=== PATIENT | female | born 2000 | race Caucasian/White ===

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

== ENCOUNTER 2022-01-14 10:40 | Day surgery (SDC) | payer MEDICAID, SELFPAY ==
[2022-01-13 11:44] VITALS: BMI 37.3
[2022-01-14] VITALS (14 sets, daily range): BP systolic 130–179; BP diastolic 68–97; PULSE 73–135; RESP 16–22; TEMP 36.1–36.9; O2SAT 97–100
[2022-01-14] MEDS: acetaminophen 1,000 MG/100 ML PIGGYBACK 400 MG IV (11:08)
[2022-01-14] MEDS: heparin 5,000 unit/mL INJ 1 mL 3000 UNIT SUBCUT (11:08)
[2022-01-14] MEDS: sodium chloride 0.9% 1,000 ML 30 ML IV (11:20)
--- NOTE | 2022-01-14 11:42 | W.PM.OPSUD ---
Surgery/Procedure H&P Update DATE OF PROCEDURE: January 14, 2022 DATE H&P PERFORMED: 12/30/21 H&P UPDATE INFORMATION: I have reviewed H&P completed within last 30 days, I have examined patient prior to procedure and Changes to prior documentation as noted here (Patient lost 15 pounds on liquid protein diet.) PREOP DIAGNOSIS: Symptomatic cholelithiasis PRIMARY INDICATION FOR PROCEDURE: The same PLANNED PROCEDURE: Operation Date: 01/14/22 12:35 Proposed Procedures p Laparoscopic Cholecystectomy 28713,R10.11(Not Applicable) - Vazquez Connelly MD
--- NOTE | 2022-01-14 11:57 | ANES.PREANE2 ---
Pre-Anesthetic Assessment Height/Weight: Height 1.78 m Weight 117.934 kg Temp Pulse Resp BP Pulse Ox O2 Del Method 97.0 F L 101 H 16 157/97 99 01/14/22 10:53 01/14/22 10:53 01/14/22 10:53 01/14/22 10:53 01/14/22 10:53 01/14/22 10:58 Preop Diagnosis: Symptomatic cholelithiasis Operation Date: 01/14/22 12:35 Proposed Procedures p Laparoscopic Cholecystectomy 14005,R10.11(Not Applicable) - Vazquez Connelly MD Familial anesthetic complications: None Was Beta Janette taken within 24 hours: N/A Was Clonidine taken within 24 hours: N/A Last intake: Intake Last Liquid Date 01/13/22 Last Liquid Time 22:00 Last Solid Date 01/03/22 Last Solid Time 12:00 Social No alcohol and No tobacco Exam alert, oriented x 3, clear to auscultation bilaterally and regular rate & rhythm Airway Mallampati: Class I Dentition: full Hepatic fatty liver GI Gastroesophageal Reflux Disease and Hiatal Hernia Metabolic Morbid Obesity Anesthetic Plan ASA status: 2 Anesthesia: General Risk of > 500 ml blood loss (7ml/kg in children): No Medications/Allergies Home Medications Medication Instructions Recorded Confirmed Last Taken Type cholecalciferol (vitamin D3) 1,250 50,000 unit PO .weekly 06/20/21 01/14/22 01/13/22 22:00 History mcg (50,000 unit) capsule norgestimate-ethinyl estradiol 1 tab PO ONCE 28 days #28 tabs 10/24/21 01/14/22 01/13/22 22:00 Rx 0.18 mg/0.215mg/0.25mg-35 mcg(28)tablet (Tri-Sprintec (28)) topiramate 25 mg tablet (Topamax) 25 mg PO BID #60 tabs 10/24/21 01/14/22 01/13/22 22:00 Rx aripiprazole 10 mg tablet 10 mg PO DAILY 30 days #30 tabs 11/12/21 01/14/22 01/13/22 09:00 Rx trazodone 50 mg tablet 50 mg PO .qhs PRN Sleep 11/19/21 01/13/22 12/11/21 History ferrous sulfate 325 mg (65 mg 325 mg PO DAILY 12/11/21 01/14/22 01/13/22 22:00 History iron) tablet (iron) mecobalamin (vitamin B12) 1,000 1,000 mcg PO DAILY 12/11/21 01/14/22 01/13/22 22:00 History mcg chewable tablet (B12 Active) pantoprazole 40 mg tablet,delayed 40 mg PO DAILY 30 days #30 tabs 12/13/21 01/14/22 01/13/22 22:00 Rx release (Protonix) Allergies Allergy/AdvReac Type Severity Reaction Status Date / Time No Known Allergies Allergy Verified 12/30/21 12:46 [facility] Anesthesia Medical History Anxiety and depression Chronic migraine Mood swings Personality disorder, unspecified Psychiatric care Vitamin D deficiency Surgical History History of tonsillectomy age 19 Family History Grandmother Cancer Breast cancer Other CAD (coronary artery disease) Chronic kidney disease (CKD) Dementia Diabetes Hypertension Psychiatric illness Stroke Denies family history of Clotting disorder Hyperlipidemia Suicide Anesthesia complication Bleeding disorder Lung disease Social History Smoking and tobacco status: current every day smoker e-cigarettes E-Cigarette Details: vaporizer device Second hand smoke exposure: No Smoking risk assessment/counseling performed?: No Alcohol intake: never Desire information about alcohol rehabilitation?: No Counseling given: No Desire information about substance/drug rehabilitation?: No Counseling given: No Adopted: No Data Anesthesia Cardiac Studies: No Data to Display
[2022-01-14 12:18] LABS: OR HCG Qualitative Urine Negative (Negative)
[2022-01-14] MEDS: lidocaine 2% INJ 20 mL INJECTION (12:58)
[2022-01-14] MEDS: ampicillin-sulbactam 3 GM in sodium chloride 0.9% (plus) 50 ML IV (12:59)
--- NOTE | 2022-01-14 14:44 | PM.OP ---
Operative Report Date of procedure: January 14, 2022 Pre-op diagnosis: Preop Diagnosis Symptomatic cholelithiasis Post-op findings: Fatty liver and chronic calculus cholecystitis Procedure done: Laparoscopic cholecystectomy Implants: Surgicel in the gallbladder fossa Specimens removed/disposition: Gallbladder and contents Intra-abdominal adhesive band Surgeon: Vazquez Connelly MD Senior Microstrategy Developer: Surgical enrique Azul and Justina Circulating nurse Rosangela Trent Anesthesia: General (RFP WRITER Ayanna and RFP WRITER student Andres) Estimated blood loss (mL): 20 IV fluids (mL): 700 Procedure: Patient was identified in the holding area and taken back to the operative suite, placed in supine position intubated by anesthesia . Time-out was done verifying the patient's name/date of /planned procedure and destination after the procedure, all were in agreement. SCDs confirmed to be functioning, preoperative antibiotics administered per protocol, and beta masood protocol was confirmed. Patient was appropriately secured to the table, footboard was applied to the OR table, before prep and drape anesthesia was asked to tilt the table back and forth to make sure that the patient is appropriately secured and she was. Prep and drape of the abdomen was done under the usual sterile technique, followed by that supraumbilical skin incision,skin incision was done by a 15 blade knife, and stay sutures were applied to the fascia and Jessica trocar technique was used to enter the abdominal without injuring any abdominal viscera, started by low flow gas insufflation followed by a high flow, started with a 10 mm laparoscope and under direct vision there was no evidence of any injuries, the scope then switched to a 30? ,10 millimeter scope and under direct visualization 5 millimeter trocar was inserted in the epigastric region followed by two 5 mm trocars were inserted in the right upper quadrant that was done after injection of local lidocaine 2% at all incision sites. Gallbladder showed chronic calculus cholecystitis and Fatty Liver Patient was then positioned in the head up and tilted to the left. Ratcheted forceps were introduced into the lateral most 5mm port and was applied unto the fundus of the gallbladder cephalad and using Bullet forceps the infundibulum of the gallbladder was retracted laterally. Using [place] forceps then L-hook cautery to dissect the peritoneum overlying the Calot's triangle which was then opened medially and laterally until the cystic duct and the cystic artery were skeletonized. Dissection was carried along the body of the gallbladder and after ensuring critical view of safety was identfied. Cystic duct and cystic artery where seen connected to the gallbladder. Clips were applied on the cystic duct towards the common bile duct 1 towards the gallbladder then divided is in sharp scissors, 2 clips were then applied onto the cystic artery and 1 towards the gallbladder and divided by sharp scissors. Additional clip was applied on the traversing vessel. Dissection was then carried along of the gallbladder from the gallbladder fossa using cautery as well as sharp dissection with heat energy. The gallbladder then was dissected out from the gallbladder fossa totally , cholecystectomy was then achieved and was placed in an Endo Catch bag and then retrieved from the Jessica trocar site under direct visualization using a 5 mm 30? scope through the epigastric trocar, specimen was then passed to the circulating nurse to go for permanent pathology,irrigation and hemostasis was done to the gallbladder fossa after hemostasis was secured and the pieces of Surgicel placed at the gallbladder fossa., final survey laparoscopy was done that showed no injuries. Suction irrigation was obtained. Intra-abdominal adhesions was noticed towards the liver could represent an obliterated vessel that was taken down and divided using clips and sent out for pathology, traversing from the liver fissure to the umbilicus. The supraumbilical fascial defect was then closed using interrupted number one PDS sutures using a fascial closure device ;Raheem Hollins under direct visualization following that Gas was allowed to deflate,Trocars were then taken out under direct vision there was no evidence of bleeding. Specimens were passed to the circulating nurse for permanent pathology. No drains were placed and the supraumbilical incision as well as all trocar sites were closed by 3/0 Vicryl followed by 4-0 Monocryl to approximate the skin edges of the incisions , dressing was applied in the form of surical glue and the patient patient got extubated and was taken to recovery area in a stable condition. Count of sponges,needles and instruments were completed at the end of the procedure I was present for the whole entire procedure.
--- NOTE | 2022-01-14 15:11 | SUR.PHASEI ---
1458 PT TO PACU 5 PT AWAKES TO VOICE, VERBALLY DENIES PAIN AND NAUSEA, ABDOMEN SOFT WITH 4 SITES WITH SKIN GLUE, MONITOR ST WITH NO ECTOPY NOTED IV TO LT WRIST #20 WITH NS 200ML UP AT KVO RATE PER GRAVIEY, ID BRACELET TO RT WRIST, PT ID'D WITH 2 IDENTIFIERS, BILAT SCDS ON . PT VERBALZIING APPROPRIATLY.
[2022-01-14] MEDS: ondansetron 2 mg/ML SDV 2 mL 4 MG IVP ×2 (15:38→16:07)
[2022-01-14] MEDS: promethazine 25 mg/mL SDV 1 mL 12.5 MG IM (16:21)
[2022-01-14] MEDS: scopolamine 1.5 Patch 1 PATCH TRANSDERMA (16:21)
--- NOTE | 2022-01-14 16:26 | PC.NURSE ---
Post-operative Nausea/Vomiting Patient awake, getting dressed and ready to leave. Patient began feeling nauseous, did vomit x2. Patient A&O x4. Attempt to call Dr. Ventura, no answer. Dr. Connelly notified, came to assess patient, and ordered Scop patch, Zofran 4mg IV, Phenergan 12.5mg IM, and ordered Zofran prescription for home use. Vidal called in to [facility], received. Medications given. VSS, no change. Patient educated on medications, side effects, and when to remove patch. Discharge instructions given, patient and mother verbalized understanding. Patient now attempting small amount of ice chips. She denies pain currently. Dr. Ventura updated.
== END 2022-01-14 17:05 | disposition home or self-care (01) ==
PROVIDERS: Anesthesiology; PCP Nurse Practitioner Family; Visit Provider Surgery
PROC: 0FT44ZZ Resection of Gallbladder, Percutaneous Endoscopic Approach (ICD-10-PCS; CPT 47562; principal; 2022-01-14 12:25)
DX: K80.10 Calculus of gallbladder with chronic cholecystitis without obstruction (principal); K21.9 Gastro-esophageal reflux disease without esophagitis; E66.01 Morbid (severe) obesity due to excess calories; K44.9 Diaphragmatic hernia without obstruction or gangrene
CPT/HCPCS: 47562; 84703; 88304; 88307; J0295; J1100; J1170; J1200; J1644; J2250; J2405; J2550; J2704; J2710; J3010; J3490; J7030

== ENCOUNTER 2022-01-14 19:11 | Emergency (ER) | payer MEDICAID, SELFPAY ==
[2022-01-14 19:15] VITALS: BP 140/82; PULSE 90; RESP 16; TEMP 36.4; O2SAT 100; BMI 37.3
--- NOTE | 2022-01-14 20:13 | W.ED.GENADLT ---
HPI - General Adult General: Chief complaint: Abdominal Pain Stated complaint: Surgery Today Pain Extreme Time Seen by Provider: 01/14/22 20:10 History of Present Illness: Patient is a 21-year-old female who underwent cholecystectomy earlier today with Dr. Connelly presenting to the emergency room with concerns of right upper abdominal pain. Patient tells me that she has been unable to fill her prescription for pain medicine. Patient denies any nausea/vomiting, fever/chills. Patient reports pain in the right upper quadrant. Patient denies any incision site leakage drainage or pain. Patient reports sore throat from the procedure earlier today. Patient denies any melena or hematochezia. Patient has not been able to stool just yet. Patient has been able to tolerate p.o. prior abdominal surgery. Patient denies any urinary complaints. No new vaginal discharge. Onset:earlier today Duration:ongoing Location:home Severity:moderate Associated symptoms: Deny chest pain, dyspnea, nausea, rash, palpitations or vomiting Review of Systems Const: Denies: fever(s) or chills Eyes: Denies: change in vision ENMT: Reports: other (+sore throat); Denies: mouth pain Card: Denies: chest pain or palpitations Resp: Denies: dyspnea or non-productive cough GI: Reports: abdominal pain; Denies: nausea, vomiting or diarrhea : Denies: dysuria Musc: Denies: extremity pain Skin/Breast: Denies: rash or new lesions Neuro: Denies: weakness in extremities Psych: Reports: other (Normal mood) Yoshi/Lymph: Denies: easy bruising PFSH ED PFSH: Medical History Anxiety and depression Chronic migraine Mood swings Personality disorder, unspecified Psychiatric care Vitamin D deficiency Surgical History History of tonsillectomy age 19 Family History Grandmother Cancer Breast cancer Other CAD (coronary artery disease) Chronic kidney disease (CKD) Dementia Diabetes Hypertension Psychiatric illness Stroke Denies family history of Clotting disorder Hyperlipidemia Suicide Anesthesia complication Bleeding disorder Lung disease Social History Smoking and tobacco status: current every day smoker e-cigarettes E-Cigarette Details: vaporizer device Second hand smoke exposure: No Smoking risk assessment/counseling performed?: No Alcohol intake: never Desire information about alcohol rehabilitation?: No Counseling given: No Desire information about substance/drug rehabilitation?: No Counseling given: No Adopted: No Female Reproductive History: Date of last menstrual period: 01/05/22 Physical Exam Const: COMMON NORMALS: alert HENMT: COMMON NORMALS: atraumatic HEAD & SCALP: atraumatic MOUTH: moist mucous membranes not abnormal Eye: COMMON NORMALS: EOMs intact bilaterally and conjunctivae normal CONJUNCTIVA: Yes conjunctivae normal Neck/C-Spine: COMMON NORMALS: full ROM and supple Resp: COMMON NORMALS: normal respiratory effort and clear to auscultation bilaterally AUSCULTATION: clear to auscultation bilaterally Cardio: COMMON NORMALS: regular rate RATE: regular rate GI: COMMON NORMALS: Soft to palpation and non-tender PALPATION: Yes Soft to palpation OTHER: +mild RUQ TTP. NO guarding rebound, guarding, rigidity. No CVA tenderness to percussion. Neg Hughes/Neg McBurney's point tenderness, no suprabupic tenderness to palpation. Laparoscopic incision site appears to be dry/clean/intact Extremity: COMMON NORMALS: full ROM Neuro: SENSORIUM/ORIENTATION: Yes alert MOTOR EXAM: No Abnormal motor strength present and Other motor observations present (no focal motor deficits) Psych: COMMON NORMALS: speech normal SPEECH: Yes normal speech MOOD & AFFECT: Yes euthymic mood Course Vital Signs: Vital signs: Vital Signs Temperature 97.6 F 01/14/22 19:15 Pulse Rate 77 01/14/22 22:26 Respiratory Rate 16 01/14/22 22:26 Blood Pressure 141/79 01/14/22 22:26 Pulse Oximetry 100 01/14/22 22:26 Oxygen Delivery Me thod 01/14/22 19:15 MDM - General Adult Medical Decision Making Patient is a 21-year-old female who underwent cholecystectomy earlier today with Dr. Connelly presenting to the emergency room with concerns of right upper abdominal pain. White count of 19.6 likely postoperative. Rest of lab within normal limit. CT showed air and postoperative changes. The air is likely postsurgery. Patient reports feeling symptomatically improved after pain control. She has a script for opiates for tomorrow. I will give send patient home 1 dose of opiate to go home with. No suspicion for other acute intra-abdominal pathology including SBO, biliary pathology, appendicitis, diverticulitis, or other emergent condition requiring surgery. Rx tylenol PRN abd pain, maalox/pepcid PRN dyspepsia, and zofran PRN nausea/vomiting Disposition: Discharge. Patient counseled regarding diagnostic impression, treatment plan. Patient given ED strict return precautions to return for continuation, worsening, or development of new symptoms. Instructed to f/u w/ PCP regarding symptoms today. Patient verbalized understanding. Lab Data : 01/14/22 21:10 01/14/22 21:10 Radiology Impressions Abdomen/Pelvis CT 01/14/22 21:17 IMPRESSION: 1. Postoperative changes associated with recent cholecystectomy. Small amount of loculated fluid and gas in the surgical bed with scattered free intraperitoneal air, likely postsurgical. Follow-up to resolution is recommended. If there is clinical concern for bile leak, HIDA scan would provide a more sensitive evaluation. 2. Additional findings, as above. Laboratory Results WBC 19.6 10^3/uL (4.5-13.0) H 01/14/22 21:10 RBC 4.70 10^6/uL (4.1-5.3) 01/14/22 21:10 Hgb 13.8 g/dL (11.5-15.3) 01/14/22 21:10 Hct 42.6 % (37.0-47.0) 01/14/22 21:10 MCV 90.6 fl (81-99) 01/14/22 21:10 MCH 29.4 pg (28.0-34.0) 01/14/22 21:10 MCHC 32.4 g/dL (30.0-36.0) 01/14/22 21:10 RDW 13.0 % (12.1-15.1) 01/14/22 21:10 Plt Count 463 10^3/cmm (130-400) H 01/14/22 21:10 MPV 10.0 fL (7.4-10.4) 01/14/22 21:10 Neut % (Auto) 94.8 % 01/14/22 21:10 Lymph % (Auto) 2.8 % 01/14/22 21:10 Mathews % (Auto) 1.5 % 01/14/22 21:10 Eos % (Auto) 0.0 % 01/14/22 21:10 Baso % (Auto) 0.2 % 01/14/22 21:10 Neut # (Auto) 18.63 10^3/uL (1.8-8.0) H 01/14/22 21:10 Lymph # (Auto) 0.6 10^3/uL (1.5-6.5) L 01/14/22 21:10 Mathews # (Auto) 0.3 10^3/uL (0.2-0.9) 01/14/22 21:10 Eos # (Auto) 0.0 10^3/uL (0.0-0.8) 01/14/22 21:10 Baso # (Auto) 0.0 10^3/uL (0.0-0.1) 01/14/22 21:10 Nucleated RBC % (auto) 0 % 01/14/22 21:10 Nucleated RBCs # 0.0 /100WBC 01/14/22 21:10 Sodium 136 mmol/L (136-145) 01/14/22 21:10 Potassium 4.6 mmol/L (3.5-5.1) 01/14/22 21:10 Chloride 99 mmol/L (98-107) 01/14/22 21:10 Carbon Dioxide 19 mmol/L (22-29) L 01/14/22 21:10 Anion Gap 22.6 (5-19) H 01/14/22 21:10 BUN 6 mg/dL (6-20) 01/14/22 21:10 Creatinine 0.6 mg/dL (0.5-0.9) 01/14/22 21:10 GFR Calculation 128.8 mL/min (90-130) 01/14/22 21:10 Glucose 122 mg/dL (65-115) H 01/14/22 21:10 Calculated Osmolality 281 mOsm/kg (285-295) L 01/14/22 21:10 Calcium 9.9 mg/dL (8.5-10.5) 01/14/22 21:10 Total Bilirubin 0.3 mg/dL (0.15-1.2) 01/14/22 21:10 AST 83 U/L (0-32) H 01/14/22 21:10 ALT 102 U/L (0-33) H 01/14/22 21:10 Alkaline Phosphatase 73 U/L (35-105) 01/14/22 21:10 Total Protein 7.8 g/dL (6.6-8.7) 01/14/22 21:10 Albumin 4.6 g/dL (3.5-5.2) 01/14/22 21:10 Globulin 3.2 g/dL (1.3-4.6) 01/14/22 21:10 Lipase 41 U/L (13-60) 01/14/22 21:10 Imaging Data Other Imaging: Radiologist's impression: [employer] [place] [address] CT Scan Report Signed Patient: Emilia Luther Unit #: [id number] : 2000 Age/Sex: 21 / F ADM Date: 01/14/22 Loc: ER Room/Bed: Attending Dr: Ordering Provider/Ordering MD: Herlinda Johnson MD Date of Service: 01/14/22 Procedure(s): CT abdomen pelvis w con* [id number] Accession Number(s): [id number] Report Number: [id number] PROCEDURE INFORMATION: Exam: CT Abdomen And Pelvis With Contrast Exam date and time: 01/14/2022 9:25 PM Age: 21 years old Clinical indication: Abdominal pain; Localized; Right upper quadrant (ruq); Prior surgery; Surgery date: Post-operative (0-2 days); Surgery type: Gb. Patient HX: C/O ruq pain post lap gb surgery earlier today. ; Additional info: Post op pain TECHNIQUE: Imaging protocol: Computed tomography of the abdomen and pelvis with contrast. Axial, coronal and sagittal reformatted images were created and reviewed. Radiation optimization: All CT scans at this facility use at least one of these dose optimization techniques: automated exposure control; mA and/or kV adjustment per patient size (includes targeted exams where dose is matched to clinical indication); or iterative reconstruction. Contrast material: OMNI 350; Contrast volume: 80 ml; Contrast route: INTRAVENOUS (IV);? COMPARISON: CT abdomen pelvis w con* [id number] 12/29/2015 3:00 AM RADIATION DOSE METRICS: Total DLP (mGy-cm): 1162.97 FINDINGS: Liver: Unremarkable. Gallbladder and bile ducts: Postoperative changes associated with recent cholecystectomy. Small amount of loculated fluid and gas in the surgical bed, likely postoperative. Pancreas: Unremarkable. Spleen: Unremarkable. Adrenal glands: Normal. No mass. Kidneys and ureters: No mass. No radiodense calculi. No hydronephrosis. Stomach and bowel: No bowel wall thickening. No obstruction. No pneumatosis. Appendix: Normal. Intraperitoneal space: Small amount of free intraperitoneal air, predominantly in the right upper quadrant, likely postsurgical. Vasculature: Unremarkable. No aneurysm. Lymph nodes: Small mesenteric lymph nodes, nonspecific in appearance. No pathologically enlarged lymph nodes. Urinary bladder: Unremarkable as visualized. Reproductive: Unremarkable. Bones/joints: No acute osseous abnormality. Soft tissues: Unremarkable. CT/CT abdomen pelvis w con* [id number] IMPRESSION: 1. Postoperative changes associated with recent cholecystectomy. Small amount of loculated fluid and gas in the surgical bed with scattered free intraperitoneal air, likely postsurgical. Follow-up to resolution is recommended. If there is clinical concern for bile leak, HIDA scan would provide a more sensitive evaluation. 2. Additional findings, as above. ? Dictated By: Alberto Collier MD Signed By: Alberto Collier MD Signed Date/Time: 01/14/222148 DD/ 24 Discharge Plan Discharge Patient Disposition: Home Clinical Impression: Abdominal pain Condition: Stable Prescriptions: New Pepcid 20 mg tablet 20 mg PO BID PRN (Reason: abdominal pain) 10 Days Qty: 20 0RF Maalox Advanced 1,000-60 mg tablet,chewable 1 tab PO TID PRN (Reason: abdominal pain) 7 Days Qty: 21 0RF No Action cholecalciferol (vitamin D3) 1,250 mcg (50,000 unit) capsule 50,000 unit PO .weekly Label Comments: Pt not taking any more aripiprazole 10 mg tablet 10 mg PO DAILY 30 Days Qty: 30 3RF topiramate [Topamax] 25 mg tablet 25 mg PO BID Qty: 60 5RF norgestimate-ethinyl estradiol [Tri-Sprintec (28)] 0.18/0.215/0.25 mg-35 mcg (28) tablet 1 tab PO ONCE 28 Days Qty: 28 11RF trazodone 50 mg tablet 50 mg PO .qhs PRN (Reason: Sleep) ferrous sulfate [iron] 325 mg (65 mg iron) Tablet 325 mg PO DAILY B12 Active 1,000 mcg Tablet,Chewable 1,000 mcg PO DAILY pantoprazole [Protonix] 40 mg tablet,delayed release (DR/EC) 40 mg PO DAILY 30 Days Qty: 30 3RF hydrocodone-acetaminophen 5-325 mg tablet 1 tab PO Q6H PRN (Reason: pain) Qty: 28 0RF Discharge Orders: Discharge ED (Routine); Ordered 01/14/22 Ordered By: Herlinda Johnson Referrals: Damaris Aguilera FNP-C [Primary Care Provider] - Discharge Diet: Advance as tolerated Discharge Activity: Increase activity as tolerated Patient Instructions: Abdominal Pain (ED) Activity Restrictions/Additional Instructions: Please come back if you have any worsening abdominal pain, fever or chills, nausea or vomiting, diarrhea, blood in the stool, inability hold down liquid or solids, or any new concerning complaints. Our medical case manager will have you follow-up with Dr. Connelly in the next few days. You would be expected to have a phone call with our medical case manager who will put you on the schedule. You can expect a call from us in the next 2-3 days. If you don't hear from us, call us back in the emergency room at [phone]. 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
[2022-01-14 21:05] VITALS: RESP 18
[2022-01-14] MEDS: HYDROmorphone 1 mg/mL INJ 1 mL 0.5 MG IVP (21:05)
[2022-01-14] MEDS: sodium chloride 0.9% 1,000 ML 999 ML IV (21:05)
[2022-01-14 21:15] LABS: Basophils % 0.2 %; Hematocrit 42.6 % (37.0-47.0); Hemoglobin 13.8 g/dL (11.5-15.3); Lymphocytes # 0.6 10^3/uL (1.5-6.5); Lymphocytes % 2.8 %; Mean Corpuscular HGB Conc 32.4 g/dL (30.0-36.0); Mean Corpuscular Hemoglobin 29.4 pg (28.0-34.0); Mean Corpuscular Volume 90.6 fl (81-99); Monocytes # 0.3 10^3/uL (0.2-0.9); Monocytes % 1.5 %; Neutrophils # 18.63 10^3/uL (1.8-8.0); Neutrophils % 94.8 %; Nucleated Red Blood Cells % 0 %; Platelet Count 463 10^3/cmm (130-400); White Blood Count 19.6 10^3/uL (4.5-13.0)
--- NOTE | 2022-01-14 21:17 | CTR_ITS ---
PROCEDURE INFORMATION: Exam: CT Abdomen And Pelvis With Contrast Exam date and time: 01/14/2022 9:25 PM Age: 21 years old Clinical indication: Abdominal pain; Localized; Right upper quadrant (ruq); Prior surgery; Surgery date: Post-operative (0-2 days); Surgery type: Gb. Patient HX: C/O ruq pain post lap gb surgery earlier today. ; Additional info: Post op pain TECHNIQUE: Imaging protocol: Computed tomography of the abdomen and pelvis with contrast. Axial, coronal and sagittal reformatted images were created and reviewed. Radiation optimization: All CT scans at this facility use at least one of these dose optimization techniques: automated exposure control; mA and/or kV adjustment per patient size (includes targeted exams where dose is matched to clinical indication); or iterative reconstruction. Contrast material: OMNI 350; Contrast volume: 80 ml; Contrast route: INTRAVENOUS (IV); COMPARISON: CT abdomen pelvis w con* [id number] 12/29/2015 3:00 AM RADIATION DOSE METRICS: Total DLP (mGy-cm): 1162.97 FINDINGS: Liver: Unremarkable. Gallbladder and bile ducts: Postoperative changes associated with recent cholecystectomy. Small amount of loculated fluid and gas in the surgical bed, likely postoperative. Pancreas: Unremarkable. Spleen: Unremarkable. Adrenal glands: Normal. No mass. Kidneys and ureters: No mass. No radiodense calculi. No hydronephrosis. Stomach and bowel: No bowel wall thickening. No obstruction. No pneumatosis. Appendix: Normal. Intraperitoneal space: Small amount of free intraperitoneal air, predominantly in the right upper quadrant, likely postsurgical. Vasculature: Unremarkable. No aneurysm. Lymph nodes: Small mesenteric lymph nodes, nonspecific in appearance. No pathologically enlarged lymph nodes. Urinary bladder: Unremarkable as visualized. Reproductive: Unremarkable. Bones/joints: No acute osseous abnormality. Soft tissues: Unremarkable. CT/CT abdomen pelvis w con* [id number] IMPRESSION: 1. Postoperative changes associated with recent cholecystectomy. Small amount of loculated fluid and gas in the surgical bed with scattered free intraperitoneal air, likely postsurgical. Follow-up to resolution is recommended. If there is clinical concern for bile leak, HIDA scan would provide a more sensitive evaluation. 2. Additional findings, as above.
[2022-01-14 21:18] VITALS: BP 151/86; PULSE 66; RESP 16; O2SAT 99
[2022-01-14] MEDS: iohexol 350 mg/mL 100 mL Btl IV (21:26)
[2022-01-14 21:37] LABS: Alanine Aminotransferase 102 U/L (0-33); Albumin Level 4.6 g/dL (3.5-5.2); Alkaline Phosphatase 73 U/L (35-105); Anion Gap 22.6 (5-19); Aspartate Amino Transferase 83 U/L (0-32); Blood Urea Nitrogen 6 mg/dL (6-20); Calcium 9.9 mg/dL (8.5-10.5); Carbon Dioxide 19 mmol/L (22-29); Chloride 99 mmol/L (98-107); Globulin 3.2 g/dL (1.3-4.6); Glomerular Filtration Rate 128.8 mL/min (90-130); Glucose 122 mg/dL (65-115); Lipase 41 U/L (13-60); Osmolality Calculated 281 mOsm/kg (285-295); Potassium 4.6 mmol/L (3.5-5.1); Sodium 136 mmol/L (136-145); Total Bilirubin 0.3 mg/dL (0.15-1.2); Total Protein 7.8 g/dL (6.6-8.7)
[2022-01-14 22:26] VITALS: BP 141/79; PULSE 77; RESP 16; O2SAT 100
== END 2022-01-14 22:23 | disposition home or self-care (01) ==
PROVIDERS: Emergency Provider Emergency Medicine; PCP Nurse Practitioner Family
DX: R10.9 Unspecified abdominal pain (principal); F17.290 Nicotine dependence, other tobacco product, uncomplicated
CPT/HCPCS: 74177; 80053; 83690; 85025; 96361; 96374; 99285; J1170; J7030; Q9967

== ENCOUNTER 2022-02-03 13:49 | Oncology outpatient (recurring) (ONCR) | payer MEDICAID, SELFPAY ==
[2022-02-03 14:36] LABS: Basophils # 0.1 10^3/uL (0.0-0.1); Basophils % 1.2 %; Eosinophils # 0.1 10^3/uL (0.0-0.8); Eosinophils % 0.5 %; Hematocrit 39.6 % (37.0-47.0); Hemoglobin 12.6 g/dL (11.5-15.3); Lymphocytes # 2.2 10^3/uL (1.5-6.5); Lymphocytes % 20.3 %; Mean Corpuscular HGB Conc 31.8 g/dL (30.0-36.0); Mean Corpuscular Hemoglobin 29.2 pg (28.0-34.0); Mean Corpuscular Volume 91.7 fl (81-99); Mean Platelet Volume 9.7 fL (7.4-10.4); Monocytes # 0.7 10^3/uL (0.2-0.9); Monocytes % 6.2 %; Neutrophils # 7.84 10^3/uL (1.8-8.0); Neutrophils % 71.3 %; Nucleated Red Blood Cells % 0 %; Platelet Count 403 10^3/cmm (130-400); Red Blood Count 4.32 10^6/uL (4.1-5.3); Red Cell Distribution Width 13.1 % (12.1-15.1)
[2022-02-03 15:26] LABS: Homocysteine 7.43; Iron 35 ug/dL (37-145); Percent Saturation 10.8 % (20-50); Total Iron Binding Capacity 323 mcg/dl; Unsaturated Iron Binding 288 ug/dL (112-347); Vitamin B12 794 pg/mL (232-1245)
[2022-02-06 09:43] LABS: Methylmalonic Acid <50 nmol/L (87-318)
== END 2022-02-17 23:59 | disposition home or self-care (01) ==
PROVIDERS: PCP Nurse Practitioner Family; Visit Provider Internal Medicine Medical Oncology
DX: D75.839 Thrombocytosis, unspecified (principal)
CPT/HCPCS: 36415; 82607; 83090; 83540; 83550; 83921; 85025

== ENCOUNTER → 2022-03-24 09:38 | Outpatient (BNVA) | payer MEDICAID, SELFPAY | PROVIDERS: PCP Nurse Practitioner Family; Visit Provider Nurse Practitioner Family | DX: R35.0 Frequency of micturition (principal); R73.9 Hyperglycemia, unspecified; Z72.51 High risk heterosexual behavior | CPT/HCPCS: 80053; 81000; 83036; 85025; 87077; 87086; 87184; 87491; 87591; 87661 ==

== ENCOUNTER 2022-05-16 08:34 | Outpatient (CLI) | payer MEDICAID, SELFPAY ==
--- NOTE | 2022-05-16 08:30 | FL_ITS ---
WS: [id number] Exam: [place] small bowel [place] gastro [id number] Date/Time of Exam: 05/16/2022 8:41 AM Reason For Exam: Fluoroscopy time: 0min [id number] minutes # of spot films: 2 Preliminary survey of the abdomen is unremarkable. Barium courses through the small bowel without obstruction. The mucosal pattern of the duodenum, jeju num and ileum appears normal. No sign of bowel loop herniation or displacement. Small bowel transit t shira was approximately 90 minutes. Spot compression images of the terminal ileum demonstrated no signi ficant abnormal finding. FL/[place] gastro [id number] IMPRESSION: 1. Normal small bowel follow-through.
== END 2022-05-16 08:35 | disposition home or self-care (01) ==
LOC: RAD 08:39
PROVIDERS: PCP Nurse Practitioner Family; Visit Provider Surgery
DX: R19.4 Change in bowel habit (principal)
CPT/HCPCS: 74250

== ENCOUNTER → 2022-12-17 11:38 | Outpatient (BNVA) | payer MEDICAID, SELFPAY | PROVIDERS: PCP Nurse Practitioner Family; Visit Provider Nurse Practitioner Family | DX: R00.1 Bradycardia, unspecified (principal) | CPT/HCPCS: 80053; 84443; 85025 ==

== ENCOUNTER 2023-04-24 22:57 | Emergency (ER) | payer MEDICAID, SELFPAY ==
[2023-04-24 23:11] VITALS: BP 124/94; PULSE 112; RESP 16; TEMP 36.7; O2SAT 97; BMI 35.2
[2023-04-25 00:03] LABS: Basophils # 0.1 10^3/uL (0.0-0.1); Basophils % 0.8 %; Eosinophils % 0.3 %; Hematocrit 42.6 % (36-47); Lymphocytes # 1.6 10^3/uL (1.5-6.5); Mean Corpuscular HGB Conc 33.8 g/dL (30-55); Mean Corpuscular Hemoglobin 29.9 pg (27-33); Mean Corpuscular Volume 88.6 fl (85-98); Mean Platelet Volume 8.7 fL (7.4-10.4); Monocytes # 0.7 10^3/uL (0.2-0.9); Monocytes % 9.9 %; Neutrophils # 4.76 10^3/uL (1.8-8.0); Neutrophils % 66.7 %; Nucleated Red Blood Cells % 0 %; Platelet Count 336 10^3/cmm (157-399); Red Blood Count 4.81 10^6/uL (3.85-5.65); Red Cell Distribution Width 12.5 % (12.1-15.1); White Blood Count 7.14 10^3/uL (4.5-13.0)
[2023-04-25 00:20] LABS: Alanine Aminotransferase 15 U/L (0-33); Albumin Level 3.9 g/dL (3.5-5.2); Alkaline Phosphatase 48 U/L (35-105); Anion Gap 13.4 (5-19); Aspartate Amino Transferase 16 U/L (0-32); Blood Urea Nitrogen 9 mg/dL (6-20); C Reactive Protein 29.6 mg/L (0.0-4.9); Calcium 9.5 mg/dL (8.5-10.5); Carbon Dioxide 21 mmol/L (22-29); Chloride 101 mmol/L (98-107); Globulin 3.4 g/dL (1.3-4.6); Glomerular Filtration Rate 127.5 mL/min (90-130); Glucose 103 mg/dL (65-115); HCG, Serum Qual Negative (Negative); Lipase 37 U/L (13-60); Osmolality Calculated 273 mOsm/kg (285-295); Potassium 3.4 mmol/L (3.5-5.1); Sodium 132 mmol/L (136-145); Total Bilirubin 0.2 mg/dL (0.15-1.2); Total Protein 7.3 g/dL (6.6-8.7)
[2023-04-25] MEDS: ketorolac 30 mg/mL INJ IVP (00:56)
[2023-04-25] MEDS: ondansetron 2 mg/ML SDV 2 mL 4 MG IVP (00:57)
[2023-04-25] MEDS: sodium chloride 0.9% 1,000 ML 999 ML IV (00:57)
[2023-04-25 01:02] LABS: Add Urine Microscopic? YES; Bilirubin Urine 1+ (Negative); Blood Urine Trace (Negative); Glucose Urine UA Norm (Normal); Ketones Urine Negative (Negative); Leukocyte Esterase Urine Negative (Negative); Nitrate Urine Negative (Negative); Protein Urine Trace (Negative); Urine Appearance Cloudy (CLEAR); Urine Color Orange (Yellow); Urobilinogen Urine Norm (Negative); pH Urine 5 (5-7)
[2023-04-25 01:04] LABS: Bacteria Urine 1+ /hpf; Mucus Urine 3+ /hpf; RBC Urine 0-4 /hpf (0-2); WBC Urine 0-4 /hpf (0-5)
--- NOTE | 2023-04-25 01:12 | ED_ITS ---
HPI - Abdominal Pain 2 General: Chief Complaint: Abdominal Pain Stated Complaint: adb and back pain Time Seen by Provider: 04/24/23 23:51 History of Present Illness: 22-year-old female with a history of cho lecystectomy. She presents with the second day of epigastric pain, radiating to her back with vomiting and diarrhea. She notes her stools been watery today. She last vomited around 5 AM she says. She denies fever. No sick contacts. Associated Symptoms: Reports diarrhea, nausea and vomiting; Denies chills, fever(s) and hematochezia Related Data: Date of Last Menstrual Period: 04/22/23 Review of Systems 2 Const: Denies: fever(s), chills or body aches Eyes: Denies: change in vision Card: Denies: chest pain or palpitations Resp: Denies: dyspnea, productive cough, non-productive cough or wheezing GI: Reports: abdominal pain, nausea, vomiting and diarrhea; Denies: hematochezia : Denies: difficulty voiding Skin/Breast: Denies: rash Neuro: Denies: headache(s), weakness in extremities, dizziness or confusion PFSH ED 2 PFSH: Medical History Mild episode of recurrent major depressive disorder Symptomatic cholelithiasis Anxiety and depression Chronic migraine Vitamin D deficiency Psychiatric care Personality disorder, unspecified Mood swings Surgical History Hx of colonoscopy (12/13/21) History of esophagogastroduodenoscopy (EGD) (12/13/21) History of cholecystectomy (01/14/22) History of tonsillectomy age 19 Family History Grandmother Cancer Breast cancer Other CAD (coronary artery disease) Chronic kidney disease (CKD) Dementia Diabetes Hypertension Psychiatric illness Stroke Denies family history of Clotting disorder Hyperlipidemia Suicide Anesthesia complication Bleeding disorder Lung disease Social History Smoking and tobacco/nicotine status: never used tobacco/nicotine Second hand smoke exposure: No Alcohol intake: never Substance/Drug Use: never Adopted: No Female Reproductive History: Date of last menstrual period: 04/22/23 Physical Exam 2 Const: COMMON NORMALS: no acute distress GENERAL APPEARANCE: cooperative; not ill appearing and not frail appearing HENMT: COMMON NORMALS: normocephalic, atraumatic and Normal external nose present HEAD & SCALP: normocephalic and atraumatic FACE & SINUS: normal facial exam and face symmetric NOSE: Normal external nose present Eye: COMMON NORMALS: Equal, round and reactive pupils present and EOMs intact bilaterally PUPIL: Yes Equal, round and reactive pupils present Neck/C-Spine: GENERAL: Yes trachea midline Chest: CHEST: Yes Symmetrical chest wall rise Resp: COMMON NORMALS: normal respiratory effort, No retractions, No use of accessory muscles and clear to auscultation bilaterally AUSCULTATION: clear to auscultation bilaterally Cardio: COMMON NORMALS: regular rate and regular rhythm RATE: regular rate RHYTHM: regular rhythm GI: COMMON NORMALS: Normal to inspection, nondistended, normoactive bowel sounds present PALPATION: Yes Tenderness to palpation present (GI) Details: LLQ and No Guarding due to palpation present (GI) Extremity: COMMON NORMALS: no pedal edema Neuro: KENDRA COMA SCALE: document GCS findings Kendra coma scale eye opening: Spontaneous Kendra coma scale verbal response: Orientated Kendra coma scale motor response: [place]bey commands [place] coma scale total score: 15 S ENSORY EXAM: Yes extremities (intact) Psych: COMMON NORMALS: speech normal SPEECH: Yes normal speech Skin: COMMON NORMALS: no rashes or lesions noted GENERAL SKIN EXAM: no rashes or lesions noted Course 2 Vital Signs: Vital signs: Vital Signs Temperature 98.1 F 04/24/23 23:11 Pulse Rate 112 H 04/24/23 23:11 Respiratory Rate 16 04/24/23 23:11 Blood Pressure 124/94 04/24/23 23:11 Pulse Oximetry 97 04/24/23 23:11 Oxygen Delivery Me thod Room Air 04/24/23 23:11 MDM - Abdominal Pain Medical Decision Making 22-year-old female with epigastric and left lower quadrant abdominal pain. She has had nausea and vomiting. Her vitals are stable. CBC is normal. Potassium is 3.4. CRP is mildly elevated. Urinalysis is not remarkable. We will treat her symptoms. Lab Data 04/25/23 00:00 04/25/23 00:00 Labs/Radiology: Laboratory Results WBC 7.14 10^3/uL (4.5-13.0) 04/25/23 00:00 RBC 4.81 10^6/uL (3.85-5.65) 04/25/23 00:00 Hgb 14.40 g/dL (12.4-14.8) 04/25/23 00:00 Hct 42.6 % (36-47) 04/25/23 00:00 MCV 88.6 fl (85-98) 04/25/23 00:00 MCH 29.9 pg (27-33) 04/25/23 00:00 MCHC 33.8 g/dL (30-55) 04/25/23 00:00 RDW 12.5 % (12.1-15.1) 04/25/23 00:00 Plt Count 336 10^3/cmm (157-399) 04/25/23 00:00 MPV 8.7 fL (7.4-10.4) 04/25/23 00:00 Neut % (Auto) 66.7 % 04/25/23 00:00 Lymph % (Auto) 22.0 % 04/25/23 00:00 [place] % (Auto) 9.9 % 04/25/23 00:00 Eos % (Auto) 0.3 % 04/25/23 00:00 Baso % (Auto) 0.8 % 04/25/23 00:00 Neut # (Auto) 4.76 10^3/uL (1.8-8.0) 04/25/23 00:00 Lymph # (Auto) 1.6 10^3/uL (1.5-6.5) 04/25/23 00:00 [place] # (Auto) 0.7 10^3/uL (0.2-0.9) 04/25/23 00:00 Eos # (Auto) 0.0 10^3/uL (0.0-0.8) 04/25/23 00:00 Baso # (Auto) 0.1 10^3/uL (0.0-0.1) 04/25/23 00:00 Nucleated RBC % (auto) 0 % 04/25/23 00:00 Nucleated RBCs # 0.0 /100WBC 04/25/23 00:00 Sodium 132 mmol/L (136-145) L 04/25/23 00:00 Potassium 3.4 mmol/L (3.5-5.1) L 04/25/23 00:00 Chloride 101 mmol/L (98-107) 04/25/23 00:00 Carbon Dioxide 21 mmol/L (22-29) L 04/25/23 00:00 Anion Gap 13.4 (5-19) 04/25/23 00:00 BUN 9 mg/dL (6-20) 04/25/23 00:00 Creatinine 0.6 mg/dL (0.5-0.9) 04/25/23 00:00 GFR Calculation 127.5 mL/min (90-130) 04/25/23 00:00 Glucose 103 mg/dL (65-115) 04/25/23 00:00 Calculated Osmolality 273 mOsm/kg (285-295) L 04/25/23 00:00 Calcium 9.5 mg/dL (8.5-10.5) 04/25/23 00:00 Total Bilirubin 0.2 mg/dL (0.15-1.2) 04/25/23 00:00 AST 16 U/L (0-32) 04/25/23 00:00 ALT 15 U/L (0-33) 04/25/23 00:00 Alkaline Phosphatase 48 U/L (35-105) 04/25/23 00:00 C-Reactive Protein 29.6 mg/L (0.0-4.9) H 04/25/23 00:00 Total Protein 7.3 g/dL (6.6-8.7) 04/25/23 00:00 Albumin 3.9 g/dL (3.5-5.2) 04/25/23 00:00 Globulin 3.4 g/dL (1.3-4.6) 04/25/23 00:00 Lipase 37 U/L (13-60) 04/25/23 00:00 HCG, Qual Negative (Negative) 04/25/23 00:00 Urine Color Emanuel (Yellow) A 04/25/23 00:45 Urine Appearance Cloudy (CLEAR) A 04/25/23 00:45 Urine pH 5 (5-7) 04/25/23 00:45 Ur Specific [place] 1.020 (1.005-1.030) 04/25/23 00:45 Urine Protein Trace (Negative) 04/25/23 00:45 Urine Glucose (UA) Norm (Normal) 04/25/23 00:45 Urine Ketones Negative (Negative) 04/25/23 00:45 Urine Blood Trace (Negative) H 04/25/23 00:45 Urine Nitrate Negative (Negative) 04/25/23 00:45 Urine Bilirubin 1+ (Negative) H 04/25/23 00:45 Urine Urobilinogen Norm mg/dL (Negative) 04/25/23 00:45 Ur Leukocyte Esterase Negative (Negative) 04/25/23 00:45 Urine RBC 0-4 /hpf (0-2) H 04/25/23 00:45 Urine WBC 0-4 /hpf (0-5) H 04/25/23 00:45 Ur Squamous Epith Cells 5-10 /hpf (0-5) H 04/25/23 00:45 Amorphous Sediment Not Reportable 04/25/23 00:45 Urine Bacteria 1+ /hpf (NONE) H 04/25/23 00:45 Urine Mucus 3+ /hpf 04/25/23 00:45 No radiology studies performed this visit Discharge Plan Discharge Patient Disposition: Home Clinical Impression: Gastroenteritis Condition: Stable Prescriptions: New ondansetron 4 mg tablet,disintegrating 4 mg PO Q6H PRN (Reason: nausea and vomiting) Qty: 14 0RF No Action cholecalciferol (vitamin D3) 1,250 mcg (50,000 unit) capsule 50,000 unit PO .weekly Patient Comments: Pt not taking any more trazodone 50 mg tablet 50 mg PO .qhs PRN (Reason: Sleep) famotidine [Pepcid] 40 mg tablet 40 mg PO BID norgestimate-ethinyl estradiol [Tri-Sprintec (28)] 0.18/0.215/0.25 mg-35 mcg (28) tablet 1 tab PO ONCE 28 Days Qty: 28 11RF topiramate 50 mg tablet 50 mg PO BID 30 Days Qty: 60 5RF fluconazole 150 mg tablet 150 mg PO Q3D Qty: 2 0RF Rx Instructions: may repeat second dose 72 hrs after first dose if symptoms persist ferrous sulfate [iron] 325 mg (65 mg iron) Tablet 325 mg PO DAILY B12 Active 1,000 mcg Tablet,Chewable 1,000 mcg PO DAILY Discharge Orders: Discharge ED (Routine); Ordered 04/25/23 Ordered By: Wilfrido Rodriges Referrals: Damaris Aguilera FNP-C [Primary Care Provider] - 1-3 days Patient Instructions: Gastroenteritis (ED), Acute Nausea and Vomiting (ED), Opioid Safety, Pain Management Activity Restrictions/Additional Instructions: Take medication scheduled for the first 24 hours, then as needed. Follow a clear liquid diet for at least 12 hours, you may add in solid foods if no vomiting during that time. Return for continued vomiting liquids, blood in the stool, worsening pain despite treatment, other concerning symptoms. See your doctor next week. 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
== END 2023-04-25 02:07 | disposition home or self-care (01) ==
PROVIDERS: Emergency Provider Emergency Medicine; PCP Nurse Practitioner Family
DX: K52.9 Noninfective gastroenteritis and colitis, unspecified (principal)
CPT/HCPCS: 80053; 81001; 83690; 84703; 85025; 86140; 96374; 96375; 99284; J1885; J2405; J7030